=== PATIENT | male | born 1985 | race Caucasian/White ===

== ENCOUNTER 2017-03-17 16:08 | Emergency (ER) | payer BC ==
[~2017-03-17] VITALS: Ht 162.6 cm; Wt 74.9 kg
[~2017-03-17 16:08] MED LIST: IBUP-1050 PO
[2017-03-17 16:18] VITALS: TEMP 36.9; Ht 162.6 cm; Wt 74.9 kg
[2017-03-17] MEDS ORDERED: PROT1POW PO (18:19)
[2017-03-17 18:35] LABS: BASO % 0.4 %; BASO ABS # 0.03 K/uL (0-0.2); COMPLETE YES; EOS % 4.1 %; HEMATOCRIT 45.5 % (42-52); IG% 0.1 %; LYMPH % 24.6 %; LYMPH ABS # 1.76 K/uL (1.2-3.4); MEAN CELL VOLUME 83.8 fL (80-100); MEAN CORPUSCULAR HEMOGLOBIN 28.2 pg (25-34); MEAN CORPUSCULAR HGB CONC 33.6 g/dl (32-36); MEAN PLATELET VOLUME 10.2 fL (7.4-10.4); MONO % 7.6 %; NEUT % 63.2 %; PLATELET COUNT 164 K/uL (130-400); RED BLOOD COUNT 5.43 M/uL (4.7-6.1); WHITE BLOOD COUNT 7.15 K/uL (4.8-10.8)
[2017-03-17] MEDS ORDERED: OPTIRAY 320 IV PRN (18:45)
[2017-03-17 18:51] LABS: BUN/CREATININE RATIO 14.6 (10-20); CREATININE 1.1 mg/dl (0.60-1.40); POTASSIUM 4.2 mmol/L (3.5-5.1)
[2017-03-17 19:00] LABS: ALB/GLOB RATIO 1.2 (0.9-2)
--- NOTE | 2017-03-17 20:15 | DIAGNOSTIC IMAGING REPORT ---
HEAD COMBO CLINICAL HISTORY: trip to [facility], fatigue, black sinus drainage TECHNIQUE: Pre and postcontrast transaxial acquisition COMPARISON STUDY: 05/30/2016 FINDINGS: Density characteristics are unremarkable. The ventricular system is midline. No abnormal postcontrast enhancement. IMPRESSION: Normal study. note is made of mild mucosal thickening of the sinuses. Electronically signed by: Angel Dahl M.D. 03/17/2017 8:14 PM Dictated Date/Time: 03/17/2017 8:12 PM
--- NOTE | 2017-03-17 20:17 | DIAGNOSTIC IMAGING REPORT ---
SINUS CT CT DOSE: 1695.41 mGy.cm HISTORY: trip to [facility], fatigue, black sinus drainage TECHNIQUE: Multiaxial CT images of the paranasal sinuses were performed and reformatted in the coronal plane without the use of contrast. COMPARISON: None. FINDINGS: Sphenoid sinuses are clear. Moderate mucosal thickening of the ethmoid sinuses. Frontal sinuses are clear. Moderate rather significant mucosal thickening of the right and to a lesser extent left maxillary sinus. Mild hypertrophic change of the nasal turbinates. Soft tissue occlusion of the ostiomeatal units bilaterally. Orbital margins are intact. Mastoid air cells are clear. The nasal septum is midline. The orbits are unremarkable. IMPRESSION: 1. Moderate mucosal thickening of the ethmoid and maxillary sinuses. 2. Soft tissue occlusion of the ostiomeatal units bilaterally. 3. The appearance is consistent with that of chronic sinusitis. Electronically signed by: Angel Dahl M.D. 03/17/2017 8:16 PM Dictated Date/Time: 03/17/2017 8:14 PM
[2017-03-17] MEDS ORDERED: AMOXICIL/CLAVU 875MG HOME PACK PO STA (20:46)
[2017-03-17] MEDS ORDERED: OXYMETAZOLINE HCL 0.05% NA SPR 15 ML BTL STA (20:46)
[2017-03-17] MEDS ORDERED: AMOX875T PO (20:54)
[2017-03-17] MEDS ORDERED: METH4PAK PO (20:54)
--- NOTE | 2017-03-17 20:56 | EMERGENCY ROOM VISIT NOTE ---
History First contact with patient: 17:53 Chief Complaint: SINUS CONGESTION/PRESSURE Stated Complaint: BLACK MUCUS- WALK IN CLINIC REFERRED Nursing Triage Summary: sinus congestion and black discharge History of Present Illness The patient is a 31 year old male who presents to the Emergency Room via private vehicle with complaints of "sinus congestion and black discharge". The patient states that this past Monday he came back from visiting the [facility]. He states that there he performs lots of snorkeling and scuba diving. He states that he returned and then this past Monday he felt fatigued. He states that he woke up Monday and developed brown discharge/mucus from his nose and he was spitting this as it is draining down the back of his throat. He states that this is progressively worsened until today when he blew his nose he noticed a black tar-like mucoid drainage from his nose. He also states that if he clears his throat he can also spit this out. It is not foul- smelling in nature. He has been fatigued throughout the week. He at this time denies any contacts, no blood from the nose, fevers, chills, chest pain, shortness of breath, abdominal pain, neck pain. He does state that he was seen earlier today by the [facility] clinic and referred here. He also states that he had a humidifier in the house, and behind there was mold growing over the winter time. Review of Systems A complete 10-point Review of Systems was discussed with the patient, with pertinent positives and negatives listed in the History of Present Illness. All remaining Review of Systems questions can be considered negative unless otherwise specified. Past Medical/Surgical History No pertinent Family History No pertinent Social History Smoking Status: Never Smoker Marital Status: Housing Status: lives with family Social History: Patient lives locally. He is employed. Current/Historical Medications Scheduled Amoxicillin & Pot Clavulanate (Augmentin 875-125 mg), 1 TAB PO BID Methylprednisolone (Medrol Dosepak), 0 PO DAILY Protein (Protein), 1 PO DAILY Allergies Coded Allergies: No Known Allergies (Unverified , 05/30/16) Physical Exam Vital Signs Date Time Temp Pulse Resp B/P (MAP) Pulse Ox O2 Delivery O2 Flow Rate FiO2 03/17/17 21:13 03/17/17 18:41 60 139/74 Room Air 03/17/17 16:20 97 Room Air 03/17/17 16:18 36.9 75 18 131/76 98 Room Air Physical Exam VITAL SIGNS - Vital signs and nursing notes were reviewed. Stable and afebrile. GENERAL -31-year-old male appearing his stated age who is in no acute distress. Communicates well with provider and answers questions appropriately. SKIN - Without rashes. Skin overlying the face is unremarkable. HEAD - NC/AT. EYES - PERRL with EOMI bilaterally. Sclera anicteric. Palpebral conjunctiva pink and moist with no injection noted. EARS - No deformities of external structures noted on gross examination bilaterally. No pain elicited with palpation of the tragus bilaterally. External auditory canals without discharge or otorrhea. Tympanic membranes pearly powers without retraction or bulging. No fluid or purulent material visualized behind the TM. Handle of malleus, umbo, cone of light, pars tensa/ flaccid all easily visualized. NOSE - Midline and without cyanosis. No epistaxis or purulent drainage noted. Septum midline without deviation or septal hematoma noted. MOUTH/OROPHARYNX - Without perioral cyanosis. Buccal mucosa pink and moist and without leukoplakia. Tongue midline with equal elevation of palate bilaterally. No tonsillar hypertrophy, erythema, or exudates noted. Good dentition noted. There is a brownish mucoid drainage noted to the posterior pharynx region. NECK - Neck with FROM. Supple to palpation. No lymphadenopathy noted. No nuchal rigidity. No meningismus. LUNGS - Chest wall symmetric without accessory muscle use, intercostals retractions, or central cyanosis. Normal vesicular breath sounds CTA B/L. No wheezes, rales, or rhonchi appreciated. CARDIAC - RRR with S1/S2. No murmur, rubs, or gallops appreciated. Medical Decision & Procedures ER Provider Diagnostic Interpretation: HEAD COMBO CLINICAL HISTORY: trip to [facility], fatigue, black sinus drainage TECHNIQUE: Pre and postcontrast transaxial acquisition COMPARISON STUDY: 05/30/2016 FINDINGS: Density characteristics are unremarkable. The ventricular system is midline. No abnormal postcontrast enhancement. IMPRESSION: Normal study. note is made of mild mucosal thickening of the sinuses. Electronically signed by: Angel Dahl M.D. 03/17/2017 8:14 PM Dictated Date/Time: 03/17/2017 8:[address] DOSE: 1695.41 mGy.cm HISTORY: trip to [facility], fatigue, black sinus drainage TECHNIQUE: Multiaxial CT images of the paranasal sinuses were performed and reformatted in the coronal plane without the use of contrast. COMPARISON: None. FINDINGS: Sphenoid sinuses are clear. Moderate mucosal thickening of the ethmoid sinuses. Frontal sinuses are clear. Moderate rather significant mucosal thickening of the right and to a lesser extent left maxillary sinus. Mild hypertrophic change of the nasal turbinates. Soft tissue occlusion of the ostiomeatal units bilaterally. Orbital margins are intact. Mastoid air cells are clear. The nasal septum is midline. The orbits are unremarkable. IMPRESSION: 1. Moderate mucosal thickening of the ethmoid and maxillary sinuses. 2. Soft tissue occlusion of the ostiomeatal units bilaterally. 3. The appearance is consistent with that of chronic sinusitis. Electronically signed by: Angel Dahl M.D. 03/17/2017 8:16 PM Dictated Date/Time: 03/17/2017 8:14 PM Laboratory Results 03/17/17 18:20 Red Blood Count 5.43, Mean Corpuscular Volume 83.8, Mean Corpuscular Hemoglobin 28.2, Mean Corpuscular Hemoglobin Concent 33.6, Mean Platelet Volume 10.2, Neutrophils (%) (Auto) 63.2, Lymphocytes (%) (Auto) 24.6, Monocytes (%) (Auto) 7.6, Eosinophils (%) (Auto) 4.1, Basophils (%) (Auto) 0.4, Neutrophils # (Auto) 4.52, Lymphocytes # (Auto) 1.76, Monocytes # (Auto) 0.54, Eosinophils # (Auto) 0.29, Basophils # (Auto) 0.03 03/17/17 18:20 Test 03/17/17 18:20 White Blood Count 7.15 K/uL (4.8-10.8) Red Blood Count 5.43 M/uL (4.7-6.1) Hemoglobin 15.3 g/dL (14.0-18.0) Hematocrit 45.5 % (42-52) Mean Corpuscular Volume 83.8 fL (80-100) Mean Corpuscular Hemoglobin 28.2 pg (25-34) Mean Corpuscular Hemoglobin Concent 33.6 g/dl (32-36) Platelet Count 164 K/uL (130-400) Mean Platelet Volume 10.2 fL (7.4-10.4) Neutrophils (%) (Auto) 63.2 % Lymphocytes (%) (Auto) 24.6 % Monocytes (%) (Auto) 7.6 % Eosinophils (%) (Auto) 4.1 % Basophils (%) (Auto) 0.4 % Neutrophils # (Auto) 4.52 K/uL (1.4-6.5) Lymphocytes # (Auto) 1.76 K/uL (1.2-3.4) Monocytes # (Auto) 0.54 K/uL (0.11-0.59) Eosinophils # (Auto) 0.29 K/uL (0-0.5) Basophils # (Auto) 0.03 K/uL (0-0.2) RDW Standard Deviation 38.3 fL (36.4-46.3) RDW Coefficient of Variation 12.8 % (11.5-14.5) Immature Granulocyte % (Auto) 0.1 % Immature Granulocyte # (Auto) 0.01 K/uL (0.00-0.02) Anion Gap 6.0 mmol/L (3-11) Est Creatinine Clear Calc Drug Dose 88.5 ml/min Estimated GFR () 101.7 Estimated GFR (Non- 87.7 BUN/Creatinine Ratio 14.6 (10-20) Calcium Level 9.0 mg/dl (8.5-10.1) Total Bilirubin 0.3 mg/dl (0.2-1) Aspartate Amino Transf (AST/SGOT) 26 U/L (15-37) Alanine Aminotransferase (ALT/SGPT) 39 U/L (12-78) Alkaline Phosphatase 88 U/L (45-117) Total Protein 7.9 gm/dl (6.4-8.2) Albumin 4.3 gm/dl (3.4-5.0) Globulin 3.6 gm/dl (2.5-4.0) Albumin/Globulin Ratio 1.2 (0.9-2) Medications Administered Medications (Trade) Dose Ordered Sig/Olegario Route Start Time Stop Time Status Last Admin Dose Admin Oxymetazoline HCl (Afrin 0.05% Nasal [place]) 1 sprays NOW STAT NA 03/17/17 20:46 03/17/17 20:48 DC 03/17/17 21:12 1 SPRAYS Amoxicillin/ Clavulanate Potassium (Augmentin 875MG Home Pack) 1 homepack UD STAT PO 03/17/17 20:46 03/17/17 20:48 DC 03/17/17 21:12 1 HOMEPACK Prednisone (PredniSONE TAB) 60 mg NOW STAT PO 03/17/17 20:46 03/17/17 20:48 DC 03/17/17 21:12 60 MG Medical Decision Patient was seen and evaluated as above. After obtaining a thorough history and physical examination IV access was initiated and the above workup was performed. Patient presents to us today with a very dark drainage of his nose and is able to produce a sample that is in my opinion very darkish powers/brown and not black. CBC reveals no leukocytosis or anemia. CMP reveals normal electrolytes, creatinine is slightly high at 1.1, this was discussed with the patient as he is to have this repeated with his family doctor. No other significant abnormality noted. CT scan of the head and face/sinuses was obtained after discussing benefit versus risk with the patient. This is positive for what is believed to be chronic sinusitis, however clinically correlated I do believe it is acute sinusitis. I discussed the case with my attending, and subsequently the on-call ear nose and throat surgeon secondary to the patient's odd color mucus drainage. I did speak with Dr. Rust at 2039. He recommended treating with antibiotics and steroids. He recommended Augmentin 2 weeks, and a Medrol Dosepak. He also recommended following up with the family doctor and [place]. He was given 60 mg of prednisone here, as well as Augmentin home pack. He is to return with any worsening of his symptoms. I do not suspect any life-threatening fungal infection of the sinuses. I believe he is expressing a bacterial sinus infection. He was educated upon worrisome symptoms which to return, had questions prior to discharge, and was discharged home in good condition. In evaluation treatment this patient following differential diagnoses were entertained: Acute sinusitis is bacterial, fungal, brain abscess, among others. Impression Primary Impression: Sinusitis Departure Information Dispostion Home / Self-Care Condition GOOD Prescriptions Amoxicillin & Pot Clavulanate (Augmentin 875-125 mg) 1 Tab Tab 1 TAB PO BID for 13 Days, #26 TAB Prov: Raudel Morrison PA-C 03/18/17 Methylprednisolone (MEDROL DOSEPAK) 4 Mg Ralph 0 PO DAILY, #1 PKT Prov: Raudel Morrison PA-C 03/17/17 Referrals Jaun Lee M.D. (PCP) Nate Rust MD Patient Instructions [facility] Additional Instructions You were seen in the emergency Department for a sinus infection. At this time I do not suspect a fungal infection, and CT scan of your head and sinuses do not demonstrate any concerning brain abscess. You'll be treated for a bacterial infection of your sinuses. You've been prescribed Augmentin. This is one tablet twice daily for 14 days. Ideally this should be taken every 12 hours. You've been given the first 24 hour supply here with the other 13 days sent to your pharmacy for order picker tomorrow. You have been prescribed a Medrol Dosepak. Take this medication as prescribed. You should take the COMPLETE 6-day course of this medication. This is an anti- inflammatory medicine that will help to minimize your symptoms. Please use the Afrin nasal spray, 2 sprays in each nostril every 8 hours for 3 days. Please do not use for more than 3 days as this can make your symptoms worse. Please rest and drink plenty of fluids to include water and Gatorade. Please follow-up with your family doctor for the creatinine/kidney function as well as your symptoms today. Please call them first thing tomorrow morning and schedule follow-up. You have been provided the number for an firearms expert as listed within this paperwork. Your symptoms persist please follow-up with them. If your symptoms worsen, or he develop any new/concerning symptoms please return immediately. I gave her time.
[2017-03-18] MEDS ORDERED: AMOX875T PO (01:01)
== END 2017-03-17 21:15 | disposition home or self-care (01) ==
LOC: C.EDB 16:09 → C.EDD 21:15
DX: J32.9 Chronic sinusitis, unspecified (principal)